=== PATIENT | female | born 1995 | race Asian ===

== ENCOUNTER 2018-12-04 13:46 | Emergency (ER) | payer OTHER ==
[~2018-12-04] VITALS: Ht 157.5 cm; Wt 59.0 kg
[2018-12-04] MEDS ORDERED: ALBU2SYR3 PO (14:46)
--- NOTE | 2018-12-04 14:46 | NUR ---
PT IS IN ROOM #1B. DR PAEZ EVALUATED THE PT. RESPIRATORY THERAPIST WAS CALLED TO ADMINISTER BREATHING TREATMENT ACCORDING TO DR PAEZ ORDER.
[2018-12-04] MEDS ORDERED: ALBUTEROL SULFATE 2.5 MG/3 ML NEBU ONE (15:14)
[2018-12-04] MEDS ORDERED: IPRATROPIUM BROMIDE 0.5 MG/2.5 ML NEBU ONE (15:14)
[2018-12-04] MEDS: IPRATROPIUM BROMIDE 0.5 MG/2.5 ML NEBU NEB ONE (15:18)
[2018-12-04] MEDS: ALBUTEROL SULFATE 2.5 MG/3 ML NEBU NEB ONE (15:18)
--- NOTE | 2018-12-04 15:43 | NUR ---
PT STATES "I FEEL BETTER" POST BREATHING TX. NO SOB REPORTED. LUNG SOUNDS CLEAR IN ALL LUNG PATINO.
[2018-12-04 16:23] VITALS: BP 106/77
--- NOTE | 2018-12-04 16:23 | NUR ---
Patient discharged to home in stable conditon. Written and verbal after care instructions given. Patient verbalizes understanding of instructions. ALL BELONGINGS W/ PT. PT SELF-AMBULATED W/O DIFFICULTY.
== END 2018-12-04 16:24 | disposition home or self-care (01) ==
LOC: ER 13:46
DX: J45.909 Unspecified asthma, uncomplicated (principal); Z79.899 Other long term (current) drug therapy
CPT/HCPCS: A4663; J3590